=== PATIENT | male | born 1995 | race Caucasian/White ===

== ENCOUNTER 2018-01-18 17:51 | Emergency (ER) | payer SELFPAY ==
[~2018-01-18] VITALS: Ht 170.2 cm; Wt 65.0 kg
[2018-01-18] MEDS ORDERED: MORPHINE SULFATE 4 MG/ML CPJ (NOT FOR IM USE) IV ONE (18:00)
[2018-01-18] MEDS ORDERED: HYDROCODONE/ACETAMINOPHEN 5/325MG TABLET PO ONE (18:45)
[2018-01-18] MEDS ORDERED: KETOROLAC 30MG/ML VIAL IV ONE (18:45)
[2018-01-18 18:57] VITALS: BP 130/79
== END 2018-01-18 19:59 | disposition home or self-care (01) ==
LOC: ER 18:05
DX: S62.511A Displaced fracture of proximal phalanx of right thumb, initial encounter for closed fracture (principal); S50.11XA Contusion of right forearm, initial encounter; F12.10 Cannabis abuse, uncomplicated; Y93.E5 Activity, floor mopping and cleaning; Y93.89 Activity, other specified; Y92.89 Other specified places as the place of occurrence of the external cause; Y99.8 Other external cause status
CPT/HCPCS: 29130; 73090; 73130; 73140; 96374; 96375; 99284; J1885; J2270